=== PATIENT | male | born 1970 | race American Indian/Alaskan Native ===

== ENCOUNTER 2018-05-20 10:12 | Outpatient (CLI) | payer MEDICARE ==
--- NOTE | 2018-05-20 15:29 | Cat Scan Report ---
CT ABDOMEN AND PELVIS WITHOUT CONTRAST INDICATION: LLQ abdominal pain. Acute diarrhea. COMPARISON: 12/18/2011 CT. FINDINGS: Abdomen and pelvis CT performed following oral contrast only. LUNG BASES: Mild cardiomegaly. No effusions. Mild nonspecific distal esophageal wall prominence/thickening, not excluded for gastroesophageal reflux and/or hiatal hernia, amongst others. ABDOMEN: Please note that sensitivity to detect small visceral lesions is limited due to the absence of intravenous contrast. Grossly unremarkable unenhanced liver, spleen, gallbladder, pancreas, adrenals, nonaneurysmal abdominal aorta with few atherosclerotic calcifications, IVC and opacified bowel. [place] kidneys in anatomic position now severely atrophic with few small bilateral renal cortical hypodense cysts measuring up to approximately 2.4 cm on the left on axial image 55, series 2 as also another 0.7 cm hyperdense/possibly hemorrhagic cyst more inferiorly, axial image 66. No ascites or significant adenopathy. A nonhydronephrotic right lower quadrant renal transplant now noted. PELVIS: Few right hemipelvic surgical clips with transplant ureter implanted anterolaterally on to the urinary bladder as on axial image 155. Prominent/slightly enlarged prostate may be correlated for clinically and with PSA. Grossly unremarkable seminal vesicle and the rectosigmoid. No free fluid or significant adenopathy. Bilateral hip degenerative changes. Slight spinal degenerative spurring. CONCLUSION: No acute CT abnormality on this unenhanced exam with few findings as at the imaged lung bases, interval right lower quadrant renal transplant and increased atrophy of the ute kidneys since 2011, as described. Thank you for the opportunity to participate in this patient's care.
== END 2018-05-20 10:13 | disposition home or self-care (01) ==
LOC: CT 10:12
PROVIDERS: ATTEND Internal Medicine Gastroenterology
DX: N26.1 Atrophy of kidney (terminal) (principal); E78.00 Pure hypercholesterolemia, unspecified; K21.9 Gastro-esophageal reflux disease without esophagitis; J44.9 Chronic obstructive pulmonary disease, unspecified; M19.90 Unspecified osteoarthritis, unspecified site
CPT/HCPCS: 74176